=== PATIENT | female | born 1955 | race Two or more races ===

== ENCOUNTER 2022-05-03 10:17 | Inpatient (IN) | payer MEDICARE, OTHER ==
[~2022-05-03] VITALS: Ht 172.7 cm; Wt 88.5 kg
--- NOTE | 2022-05-03 10:45 | NUR ---
RECEIVED PT FROM HOME CAME BY ANA FOR UNABLE TO TO OPEN HERE EYES AND FULLY AWAKE
[2022-05-03] MEDS ORDERED: SIMV-49 PO (10:47)
[2022-05-03] MEDS ORDERED: ASCO500C17 PO (10:47)
[2022-05-03] MEDS ORDERED: LEVO100T9 PO (10:47)
[2022-05-03] MEDS ORDERED: MIRT7.5T10 PO (10:47)
[2022-05-03] MEDS ORDERED: LISI10TA29 PO (10:47)
[2022-05-03] MEDS ORDERED: LOSA25TA27 PO (10:47)
[2022-05-03] MEDS ORDERED: OMEP20CA15 PO (10:47)
[2022-05-03] MEDS ORDERED: UBID400C5 PO (10:47)
[2022-05-03] MEDS ORDERED: ONDA4TAB5 PO (10:47)
--- NOTE | 2022-05-03 11:05 | NUR ---
Rhianna hseppard in [facility] - 05/03/22 at 1404 by [email or web address] JAZMINE SARMIENTO [phone]
--- NOTE | 2022-05-03 11:05 | NUR ---
RUTHANN CALLED PETER SHIRLEY
--- NOTE | 2022-05-03 11:30 | NUR ---
BLOOD DROW BY LAB TACH
--- NOTE | 2022-05-03 11:35 | NUR ---
RESTING ND ASLEEPY
[2022-05-03 11:43] LABS: BASOPHILS % (AUTO) 0.5 % (0.0-2.0); EOSINOPHILS % (AUTO) 0.4 % (0.0-6.0); HEMATOCRIT 44 % (33-45); HEMOGLOBIN 14.5 g/dL (11.5-14.8); LYMPHOCYTES # (AUTO) 1.5 K/uL (0.8-4.8); LYMPHOCYTES % (AUTO) 29.3 % (20.0-44.0); MEAN CORPUSCULAR HGB CONC 33 g/dl (31.0-36.0); MEAN CORPUSCULAR VOLUME 87 fL (82-100); MONOCYTES # (AUTO) 0.4 K/uL (0.1-1.30); MONOCYTES % (AUTO) 8.2 % (2.0-12.0); NEUTROPHILS # (AUTO) 3.2 K/uL (1.8-8.9); NEUTROPHILS % (AUTO) 61.6 % (43.0-81.0); PLATELET COUNT (AUTO) 177 K/uL (150-450); RED BLOOD CELL COUNT(AUTO) 5.01 MIL/uL (4.0-5.2); WHITE BLOOD COUNT (AUTO) 5.2 K/uL (4.3-11.0)
[2022-05-03 11:56] LABS: ALANINE AMINOTRANSFERASE 23 U/L (12-78); ALBUMIN 4.2 g/dL (3.4-5.0); ALCOHOL, BLOOD < 3 mg/dL (0-0); ALKALINE PHOSPHATASE 68 U/L (46-116); ASPARTATE AMINOTRANSFERASE 14 U/L (15-37); BILIRUBIN,DIRECT 0.2 mg/dL (0.0-0.2); BILIRUBIN,TOTAL 0.9 mg/dL (0.2-1.0); CHLORIDE 107 mmol/L (98-107); CREATININE 0.9 mg/dL (0.6-1.3); POTASSIUM 3.4 mmol/L (3.5-5.1); SODIUM SERUM 143 mmol/L (136-145); TOTAL PROTEIN, SERUM 7.3 g/dL (6.4-8.2)
[2022-05-03 12:07] LABS: ACETAMINOPHEN < 10 ug/ml (10-30)
--- NOTE | 2022-05-03 12:15 | NUR ---
NO PAIN NO SOB
--- NOTE | 2022-05-03 12:40 | NUR ---
RN NOTES PATIENT REFUSED TO TAKE ATIVAN AND STATED ATIVAN IS ONLY PRN AND HE DOES NOT NEED IT.
[2022-05-03 12:41] LABS: CARBON DIOXIDE 24 mmol/L (21-32)
[2022-05-03 12:42] LABS: CALCIUM, SERUM 9.2 mg/dL (8.5-10.1); GLUCOSE 99 mg/dL (74-106); UREA NITROGEN, BLOOD 13 mg/dL (7-18)
--- NOTE | 2022-05-03 12:55 | NUR ---
C XRAY DONE AT BED SIDE
--- NOTE | 2022-05-03 12:56 | NUR ---
COVID SWAB DONE AND SENT TO LAB
--- NOTE | 2022-05-03 13:00 | NUR ---
UNABLE TO PROVIDE URINE AT THIS TIME
--- NOTE | 2022-05-03 13:45 | NUR ---
DERICK SWAP SEED TO LAB
--- NOTE | 2022-05-03 13:46 | NUR ---
BED 323-1
--- NOTE | 2022-05-03 14:20 | NUR ---
UA SENT TO LAB
[2022-05-03 14:43] LABS: BILIRUBIN,URINE NEGATIVE (NEGATIVE); COLOR,URINE YELLOW (YELLOW); LEUKOCYTE ESTERASE ,URINE NEGATIVE (NEGATIVE); NITRITE, URINE NEGATIVE (NEGATIVE); PROTEIN,URINE NEGATIVE (NEGATIVE); UGLUCOSE NEGATIVE (NEGATIVE); UROBILINOGEN,URINE 0.2 EU/dL (0.2)
--- NOTE | 2022-05-03 14:47 | NUR ---
HAND OFF OMID , A RN TO ROOM 323-1 SATBLE VS AND CONDITION NO PAIN OR SOB
[2022-05-03 15:15] VITALS: BP 153/93
--- NOTE | 2022-05-03 15:15 | NUR ---
MASTER COSMETOLOGIST NOTES RECEIVED PATIENT FROM ER VIA JONES ENDORSED BY SANTOSH ERAZO. PATIENT IS AWAKE AND A/O X4. ON ROOM AIR TOLERATING WELL. NO SOB NOTED. NOT IN DISTRESS. WITH NO COMPLAINTS OF PAIN OR DISCOMFORT AT THIS TIME. WITH IV ACCESS AT THE RIGHT HAND G20 SALINE LOCKED, PATENT AND INTACT. SKIN IS INTACT. SAFETY MEASURES IN PLACED. CALL LIGHT WITHIN REACH. BED ON LOWEST LOCKED POSITION, SIDE RAILS UP X2. WILL CONTINUE TO MONITOR.
[2022-05-03 16:00] VITALS: BP 153/93
[2022-05-03 16:15] LABS: BACTERIA,URINE None seen /HPF (None Seen); SQUAMOUS EPITHELIAL CELL,UR 0-2 /HPF (None Seen); WBC,URINE 0-2 /HPF (0-3)
[2022-05-03] MEDS ORDERED: MAGNESIUM HYDROXIDE 30 ML UDC PO PRN (17:00)
[2022-05-03] MEDS ORDERED: ZOLPIDEM TARTRATE 5 MG TABLET PO PRN (17:00)
[2022-05-03] MEDS ORDERED: ONDANSETRON HCL/PF 4 MG/2 ML VIAL IVP PRN (17:00)
[2022-05-03] MEDS ORDERED: MAG HYDROX/AL HYDROX/SIMETH 30 ML UDC PO PRN (17:00)
[2022-05-03] MEDS ORDERED: Z GUARD REMEDY 4 OZ OINT TP PRN (17:00)
--- NOTE | 2022-05-03 19:30 | NUR ---
MS RN CLOSING NOTES PATIENT ON BED AWAKE AND A/O X4. ON ROOM AIR TOLERATING WELL. NO SOB NOTED. NOT IN DISTRESS. WITH NO COMPLAINTS OF PAIN OR DISCOMFORT AT THIS TIME. WITH IV ACCESS AT THE RIGHT HAND G20 SALINE LOCKED, PATENT AND INTACT. SAFETY MEASURES IN PLACED. CALL LIGHT WITHIN REACH. BED ON LOWEST LOCKED POSITION, SIDE RAILS UP X2. WILL ENDORSE TO NEXT SHIFT FOR GEOVANI.
--- NOTE | 2022-05-03 19:35 | NUR ---
MS RN OPENING NOTE RECEIVED PATIENT AWAKE IN BED. A/O X4 AND ABLE TO MAKE NEEDS KNOWN. PT STABLE ON ROOM AIR TOLERATING WELL. NO SOB OR S/S OF RESPIRATORY DISTRESS. WITH NO COMPLAINTS OF PAIN OR DISCOMFORT AT THIS TIME. IV ACCESS R HAND G20 SL, PATENT AND INTACT. SAFETY PRECAUTIONS IN PLACE. BED IN LOWEST LOCKED POSITION, HOB ELEVATED, SIDE RAILS UP X2, AND CALL LIGHT AND TABLE WITHIN REACH. ALL NEEDS MET AT THIS TIME.
[2022-05-03 20:00] VITALS: BP 151/68
[2022-05-04] MEDS: ACETAMINOPHEN 325 MG TABLET PO PRN ×2 (05:36→16:31)
--- NOTE | 2022-05-04 05:48 | NUR ---
RN NOTE PT COMPLAINED OF HEADACHE. ADMINISTERED TYLENOL 650 MG FOR MILD PAIN. MADE COMFORTABLE IN BED. ALL NEEDS MET AT THIS TIME.
[2022-05-04 06:31] LABS: BASOPHILS % (AUTO) 0.6 % (0.0-2.0); EOSINOPHILS % (AUTO) 0.7 % (0.0-6.0); HEMATOCRIT 43 % (33-45); HEMOGLOBIN 14.2 g/dL (11.5-14.8); LYMPHOCYTES # (AUTO) 1.6 K/uL (0.8-4.8); LYMPHOCYTES % (AUTO) 30.3 % (20.0-44.0); MEAN CORPUSCULAR HGB CONC 33 g/dl (31.0-36.0); MEAN CORPUSCULAR VOLUME 88 fL (82-100); MONOCYTES # (AUTO) 0.5 K/uL (0.1-1.30); MONOCYTES % (AUTO) 10.1 % (2.0-12.0); NEUTROPHILS # (AUTO) 3.1 K/uL (1.8-8.9); NEUTROPHILS % (AUTO) 58.3 % (43.0-81.0); PLATELET COUNT (AUTO) 181 K/uL (150-450); RED BLOOD CELL COUNT(AUTO) 4.92 MIL/uL (4.0-5.2); WHITE BLOOD COUNT (AUTO) 5.4 K/uL (4.3-11.0)
--- NOTE | 2022-05-04 06:51 | NUR ---
MS RN CLOSING NOTE PATIENT AWAKE IN BED. A/O X4 AND ABLE TO MAKE NEEDS KNOWN. PT STABLE ON ROOM AIR TOLERATING WELL. NO SOB OR S/S OF RESPIRATORY DISTRESS. WITH NO COMPLAINTS OF PAIN OR DISCOMFORT AT THIS TIME. IV ACCESS R HAND G20 SL, PATENT AND INTACT. SAFETY PRECAUTIONS IN PLACE AT ALL TIMES. BED IN LOWEST LOCKED POSITION, HOB ELEVATED, SIDE RAILS UP X2, AND CALL LIGHT AND TABLE WITHIN REACH. ALL NEEDS MET AT THIS TIME AND WILL ENDORSE TO ONCOMING NURSE FOR GEOVANI.
[2022-05-04 07:15] LABS: CALCIUM, SERUM 9.4 mg/dL (8.5-10.1); CREATININE 0.8 mg/dL (0.6-1.3); MAGNESIUM 2.4 mg/dL (1.8-2.4); PHOSPHORUS 3.6 mg/dL (2.5-4.9); POTASSIUM 3.5 mmol/L (3.5-5.1)
--- NOTE | 2022-05-04 07:20 | NUR ---
RN OPENING NOTES PATIENT IS AWAKE IN BED AND ORIENTED X4. PATIENT IS STABLE, ON ROOM AIR. PATIENT IS NOT SHOWING ANY SIGNS OF DISTRESS. PATIENT HAS IV ACCESS ON RIGHT ARM G20 SL. IV IS PATENT AND INTACT. PATIENT COMPLAINED OF A HEADACHE RATING 5/10, TYLENOL WAS GIVEN AT 0600. SAFETY MEASURES IN PLACE, BED IS IN LOWEST POSITION, BED LOCKS ON, HOB ELEVATED, SIDE RAILS UP X2, CALL LIGHT WITHIN REACH. WILL CONTINUE TO MONITOR PATIENT.
[2022-05-04 08:00] VITALS: BP 136/84
[2022-05-04 08:21] LABS: THYROID STIMULATING HORMONE 18.808 uIU/mL (0.358-3.74)
[2022-05-04] MEDS: PANTOPRAZOLE 40 MG TABLET.DR PO SCH (08:28)
[2022-05-04 16:00] VITALS: BP 144/89
--- NOTE | 2022-05-04 18:56 | NUR ---
RN CLOSING NOTES PATIENT AWAKE IN BED. ALERT AND ORIENTED X4. ABLE TO MAKE NEEDS KNOWN. PATIENT IS STABLE ON ROOM AIR, NO SIGNS OF RESPIRATORY DISTRESS. PATIENT HAD COMPLAINTS OF HEADACHE, TYLENOL 650MG WAS GIVEN PER ORDER. IV ACCESS ON RIGHT HAND WITH 20G SL, PATENT AND INTACT. SAFETY MEASURES IN PLACE: BED AT LOWEST POSITION, SIDE RAILS UP X2, CALL LIGHT WITHIN REACH. NEEDS MET AT THIS TIME, WILL ENDORSE TO ONCOMING NURSE.
[2022-05-04 20:00] VITALS: BP 137/79
[2022-05-05] MEDS: ACETAMINOPHEN 325 MG TABLET PO PRN (02:29)
--- NOTE | 2022-05-05 02:29 | NUR ---
HEADACHE Patient c/o mild headache, denies dizziness, no c/o N/V. Given Tylenol, will reassess.
--- NOTE | 2022-05-05 05:53 | NUR ---
END OF SHIFT REPORT Patient in bed. Alert Oriented x3 Forgetful. Right hand IV peripheral line intact. Headache resolved with Tylenol.No c/o chest pain, no c/o sob. Up to wheelchair x1 assist, fall precaution maintained. Seen by PT, recommended SNF when dc. Will endorse to oncoming RN.
[2022-05-05 06:51] LABS: BASOPHILS % (AUTO) 0.7 % (0.0-2.0); EOSINOPHILS % (AUTO) 0.8 % (0.0-6.0); HEMATOCRIT 42 % (33-45); HEMOGLOBIN 14.3 g/dL (11.5-14.8); LYMPHOCYTES % (AUTO) 40.5 % (20.0-44.0); MEAN CORPUSCULAR HGB CONC 34 g/dl (31.0-36.0); MEAN CORPUSCULAR VOLUME 87 fL (82-100); MONOCYTES # (AUTO) 0.4 K/uL (0.1-1.30); NEUTROPHILS # (AUTO) 2.4 K/uL (1.8-8.9); PLATELET COUNT (AUTO) 174 K/uL (150-450); RED BLOOD CELL COUNT(AUTO) 4.87 MIL/uL (4.0-5.2); WHITE BLOOD COUNT (AUTO) 4.9 K/uL (4.3-11.0)
[2022-05-05 07:19] LABS: CALCIUM, SERUM 9.2 mg/dL (8.5-10.1); MAGNESIUM 2.1 mg/dL (1.8-2.4); PHOSPHORUS 3.6 mg/dL (2.5-4.9); POTASSIUM 3.5 mmol/L (3.5-5.1)
--- NOTE | 2022-05-05 07:25 | NUR ---
RN OPENING NOTES RECEIVED PATIENT IN BED, AWAKE, A/O X4, VERBALLY RESPONSIVE, NO SIGNS OF ACUTE DISTRESS NOTED. STABLE IN ROOM AIR, NO SOB NOTED, BREATHING EVEN AND UNLABORED. DENIES ANY PAIN AT THIS TIME. WITH IV ACCESS ON RIGHT HAND #22G, INTACT AND PATENT, SALINE LOCKED. SAFETY PRECAUTIONS IN PLACE. BED IN LOWEST LOCKED POSITION, SIDE RAILS UP X2, CALL LIGHT PLACED WITHIN EASY REACH. WILL CONTINUE TO MONITOR PATIENT.
[2022-05-05 08:00] VITALS: BP 136/90
[2022-05-05] MEDS: PANTOPRAZOLE 40 MG TABLET.DR PO SCH (08:15)
[2022-05-05] MEDS ORDERED: Medication Not On Formulary EA (Ondansetron Hcl (Zofran) 4 MG) PO PRN (13:30)
[2022-05-05 16:00] VITALS: BP 148/93
[2022-05-05] MEDS ORDERED: MIRTAZAPINE 15 MG TABLET PO SCH (18:00)
--- NOTE | 2022-05-05 18:55 | NUR ---
MS RN CLOSING NOTES PATIENT IN BED, AWAKE. PT A/O X4. ON ROOM AIR. NO RESPIRATORY DISTRESS, NO SOB NOTED. NO COMPLAINTS OF PAIN OR DISCOMFORT AT THIS TIME. IV ACCESS AT THE RIGHT HAND G20 SALINE LOCKED, PATENT AND INTACT. SAFETY MEASURES IN PLACE. CALL LIGHT WITHIN REACH, BED LOCKED, IN LOW POSITION, SIDE RAILS UP X2. WILL ENDORSE PT'S CARE TO ONCOMING SHIFT NURSE .
--- NOTE | 2022-05-05 19:30 | NUR ---
MS RN OPENING NOTES RECEIVED PT LYING IN BED AWAKE, DAUGHTER PRESENT IN THE ROOM. A/O X4. BREATHING EVEN AND NON-LABORED ON ROOM AIR. NOT IN APPARENT DISTRESS. HAS RIGHT HAND IV ACCESS #20G AND SALINE LOCKED. C/O PAIN AND REDNESS NOTED. SAFETY MEASURES IN PLACE: BED IN LOWEST POSITION AND LOCKED, ALARM ON, CALL LIGHT WITHIN REACH. WILL CONTINUE POC.
--- NOTE | 2022-05-05 19:44 | NUR ---
MS RN NOTES PT HAS NOT RECEIVED HER LISINOPRIL SINCE ADMISSION. CURRENT BP IS 150/94. NOTIFIED [employer] SALESPERSON AND ORDERED LISINOPRIL 10MG PO NOW. NOTED AND CARRIED OUT.
[2022-05-05 20:00] VITALS: BP 150/94
[2022-05-05] MEDS ORDERED: LISINOPRIL (10MG) 10 MG TABLET PO ONE (20:00)
[2022-05-06] VITALS: BP 130/78
[2022-05-06 04:00] VITALS: BP 120/70
[2022-05-06] MEDS ORDERED: UBIDECARENONE PO SCH (06:00)
--- NOTE | 2022-05-06 07:09 | NUR ---
MS RN CLOSING NOTES PT LYING IN BED ASLEEP, EASY TO AROUSE. A/O X3. NO ACUTE DISTRESS NOTED. NO SOB OR NOTED. TOLERATING ROOM AIR WELL. NO C/O PAIN AT THIS TIME. AFEBRILE. RE-INSERTED IV ACCESS TO LEFT HAND USING #20G AND SALINE LOCKED. INTACT PATENT AND FLUSHING. ALL DUE MEDS GIVEN AND NEEDS ATTENDED. SAFETY MEASURES MAINTAINED: BED IN LOWEST POSITION AND LOCKED, ALARM ON, CALL LIGHT WITHIN REACH. WILL ENDORSE TO AM SHIFT.
--- NOTE | 2022-05-06 07:27 | NUR ---
RN OPENING NOTES RECEIVED PATIENT IN BED, AWAKE, A/O X4, VERBALLY RESPONSIVE, NO SIGNS OF ACUTE DISTRESS NOTED. STABLE IN ROOM AIR, NO SOB NOTED, BREATHING EVEN AND UNLABORED. DENIES ANY PAIN AT THIS TIME. WITH IV ACCESS ON LEFT HAND #20G, INTACT AND PATENT, SALINE LOCKED. SAFETY PRECAUTIONS IN PLACE. BED IN LOWEST LOCKED POSITION, SIDE RAILS UP X2, CALL LIGHT PLACED WITHIN EASY REACH. WILL CONTINUE TO MONITOR PATIENT.
[2022-05-06] MEDS: PANTOPRAZOLE 40 MG TABLET.DR PO SCH (08:15)
[2022-05-06 08:45] VITALS: BP 138/82
[2022-05-06] MEDS ORDERED: LOSARTAN POTASSIUM 25 MG TABLET PO SCH (09:00)
[2022-05-06] MEDS ORDERED: OMEPRAZOLE 20 MG CAPSULE.DR PO SCH (09:00)
[2022-05-06] MEDS ORDERED: ASCORBIC ACID 500 MG TABLET PO SCH (09:00)
[2022-05-06] MEDS ORDERED: LEVOTHYROXINE SODIUM 100 MCG TABLET PO SCH (09:00)
[2022-05-06] MEDS ORDERED: LISINOPRIL (10MG) 10 MG TABLET PO SCH (09:00)
[2022-05-06 11:40] LABS: BASOPHILS % (AUTO) 0.8 % (0.0-2.0); EOSINOPHILS % (AUTO) 0.8 % (0.0-6.0); HEMATOCRIT 43 % (33-45); HEMOGLOBIN 14.1 g/dL (11.5-14.8); LYMPHOCYTES # (AUTO) 1.6 K/uL (0.8-4.8); LYMPHOCYTES % (AUTO) 34.7 % (20.0-44.0); MEAN CORPUSCULAR HGB CONC 33 g/dl (31.0-36.0); MEAN CORPUSCULAR VOLUME 88 fL (82-100); MONOCYTES # (AUTO) 0.4 K/uL (0.1-1.30); MONOCYTES % (AUTO) 9.9 % (2.0-12.0); NEUTROPHILS # (AUTO) 2.4 K/uL (1.8-8.9); NEUTROPHILS % (AUTO) 53.8 % (43.0-81.0); PLATELET COUNT (AUTO) 170 K/uL (150-450); RED BLOOD CELL COUNT(AUTO) 4.86 MIL/uL (4.0-5.2); WHITE BLOOD COUNT (AUTO) 4.5 K/uL (4.3-11.0)
[2022-05-06 12:15] LABS: MAGNESIUM 2.2 mg/dL (1.8-2.4); PHOSPHORUS 3.6 mg/dL (2.5-4.9); POTASSIUM 3.6 mmol/L (3.5-5.1)
--- NOTE | 2022-05-06 18:03 | NUR ---
BANQUET PILOT NOTE PATIENT DISCHARGED TO [facility]) IN STABLE CONDITION. PATIENT A/O X3, VERBALLY RESPONSIVE, NO SIGNS OF ACUTE DISTRESS NOTED. IV ACCESS ON LEFT HAND REMOVED, NO BLEEDING NOTED, PRESSURE DRESSING APPLIED TO SITE. DISCHARGE INSTRUCTIONS AND HEALTH TEACHINGS GIVEN TO PATIENT WITH VERBALIZATION OF UNDERSTANDING. ALL BELONGINGS ACCOUNTED FOR, HOME MEDS ALSO SENT WITH PATIENT. REPORT CALLED TO INTERIOR RN C/O VALENTE Ferro. EXITCARE FOLDER GIVEN TO EMT, HANDOFF REPORT GIVEN. PATIENT LEFT UNIT @1755 PICKED UP VIA GURNEY BY AMBULANCE. CN AWARE OF DISCHARGE.
[2022-05-06] MEDS ORDERED: SIMVASTATIN 20 MG TABLET PO SCH (22:00)
== END 2022-05-06 17:58 | DRG 641 ==
LOC: ER 10:28 → MED 14:46
PROVIDERS: ADMIT Student in an Organized Health Care Education/Training Program; ATTEND Student in an Organized Health Care Education/Training Program
DX: E87.6 Hypokalemia (principal); G11.9 Hereditary ataxia, unspecified; E03.9 Hypothyroidism, unspecified; Z20.822 Contact with and (suspected) exposure to COVID-19; I10 Essential (primary) hypertension; E78.5 Hyperlipidemia, unspecified; Z88.1 Allergy status to other antibiotic agents; Z79.899 Other long term (current) drug therapy; Z99.3 Dependence on wheelchair; Z87.891 Personal history of nicotine dependence; Z79.890 Hormone replacement therapy; M51.36 Other intervertebral disc degeneration, lumbar region
CPT/HCPCS: 36415; 71045-TC; 80048-TC; 80076-TC; 81001; 83735-TC; 84100-TC; 84439-TC; 84443-TC; 85025-TC; 87081-TC; 97112-TC; 97530-TC; C9803; G0378; G0480